=== PATIENT | female | born 1990 | race Hispanic/Latino ===

== ENCOUNTER 2016-10-22 02:44 | Observation (INO) | payer OTHER ==
[2016-10-22 03:00] VITALS: BMI 17.1
[2016-10-22] MEDS ORDERED: Sodium Chloride 0.9% 1,000 ML IV STA (03:19)
[2016-10-22 04:10] LABS: BASO % 0.1 % (0.0-2.0); EOS # 0.1 K/uL (0.0-0.7); EOS % 0.9 % (0.0-4.0); HEMATOCRIT 38.9 % (34.0-47.0); LYMPH # 0.4 K/uL (1.0-4.3); MEAN CELL VOLUME 93.1 fl (81.0-99.0); MEAN CORPUSCULAR HEMOGLOBIN 31.7 pg (27.0-31.0); MEAN PLATELET VOLUME 8.9 fl (7.2-11.7); MONO # 0.5 K/uL (0.0-0.8); MONO % 4.5 % (0.0-10.0); NEUT # 10.1 K/uL (1.8-7.0); NEUT % 90.5 % (50.0-75.0); PLATELET COUNT 231 K/uL (130-400); RED CELL DISTRIBUTION WIDTH 12.8 % (11.5-14.5); WHITE BLOOD COUNT 11.2 K/uL (4.8-10.8)
[2016-10-22 04:23] LABS: ALB/GLOB RATIO 1.3 (1.0-2.1); ALKALINE PHOSPHATASE 41 U/L (38-126); ALT/SGPT 35 U/L (9-52); AST/SGOT 37 U/L (14-36); BILIRUBIN,TOTAL 0.5 mg/dl (0.2-1.3); BLOOD UREA NITROGEN 17 mg/dl (7-17); CALCIUM 9.4 mg/dL (8.4-10.2); CARBON DIOXIDE 25 mmol/L (22-30); CHLORIDE 103 mmol/L (98-107); GFR AFRICAN-AMERICAN > 60; GLUCOSE,RANDOM 103 mg/dL (65-105); LIPASE 366 U/L (23-300); POTASSIUM 4.4 MMOL/L (3.6-5.0); SODIUM 139 mmol/l (132-148); TOTAL PROTEIN 8.1 G/DL (6.3-8.2)
[2016-10-22] MEDS ORDERED: Iohexol 240 (50 ml) PO STA (04:55)
[2016-10-22] MEDS ORDERED: Iohexol 240 (50 ml) ONE (05:00)
--- NOTE | 2016-10-22 05:17 | ED PDOC ---
HPI: Abdomen Time Seen by Provider: 10/22/16 03:03 Chief Complaint (Nursing): Abdominal Pain Chief Complaint (Provider): Abdominal pain, nausea and vomiting History Per: Patient History/Exam Limitations: no limitations Onset/Duration Of Symptoms: Hrs (2.5) Outside of [place] travel?: No Current Symptoms Are (Timing): Still Present Location Of Pain/Discomfort: Diffuse Associated Symptoms: Nausea, Vomiting, Diarrhea (X 2 loose, watery without mucous or blood ). denies: Fever, Chills, Chest Pain Additional Complaint(s): Pt states when she was home she was vomiting back to back, had severe sharp abdominal pain and was sweating. Pt states she felt really bad but is now feeling better. Pt denies similar in the past. Pt states everything she ate her parents ate and she is the only one sick. Denies fever/chills. Past Medical History Reviewed: Historical Data, Nursing Documentation, Vital Signs Vital Signs: Last Vital Signs Temp 98.2 F 10/22/16 03:00 Pulse 95 H 10/22/16 03:00 Resp 16 10/22/16 03:00 BP 145/77 10/22/16 03:00 Pulse Ox 100 10/22/16 05:21 - Medical History PMH: No Chronic Diseases - Surgical History Surgical History: No Surg Hx - Family History Family History: States: No Known Family Hx - Living Arrangements Living Arrangements: With Family - Social History Current smoker - smoking cessation education provided: No Alcohol: Occasional Drugs: Denies - Allergies Allergies/Adverse Reactions: Allergies Allergy/AdvReac Type Severity Reaction Status Date / Time amoxicillin Allergy RASH Verified 10/22/16 03:00 Review of Systems ROS Statement: Except As Marked, All Systems Reviewed And Found Negative Gastrointestinal: Positive for: Nausea, Vomiting, Abdominal Pain, Diarrhea. Negative for: Constipation Physical Exam - Reviewed Nursing Documentation Reviewed: Yes Vital Signs Reviewed: Yes - Physical Exam Appears: Positive for: Well, Non-toxic, No Acute Distress Head Exam: Positive for: ATRAUMATIC, NORMAL INSPECTION, NORMOCEPHALIC Skin: Positive for: Normal Color, Warm, DRY Eye Exam: Positive for: Normal appearance ENT: Positive for: Normal ENT Inspection Neck: Positive for: Normal, Painless ROM Cardiovascular/Chest: Positive for: Regular Rate, Rhythm Respiratory: Positive for: CNT, Normal Breath Sounds Gastrointestinal/Abdominal: Positive for: Bowel Sounds, Soft, Tenderness (RUQ, ( -) Nichole's sign ). Negative for: Normal Exam, Guarding, Rebound Back: Positive for: Normal Inspection Extremity: Positive for: Normal ROM Neurologic/Psych: Positive for: Alert, Oriented - Laboratory Results Result Diagrams: 10/22/16 03:50 10/22/16 03:50 - ECG O2 Sat by Pulse Oximetry: 100 Medical Decision Making Medical Decision Making: On re-evaluation after bentyl and zofran patient reports continued intermittent abdominal pain. Pt tender periumbilical. CT ordered to r/o early appy. ED OBSERVATION Date of observation admission: 10/22/16 Time of observation admission: 05:43 - Observation admission statement Patient is being placed in observation because:: Abdominal pain, pending CT scan - Goals of Observation Goals of observation are:: CT results Disposition - Clinical Impression Clinical Impression: Abdominal pain - Patient ED Disposition Is Patient to be Admitted: Transfer of Care - Disposition Disposition: Transfer of Care Disposition Time: 06:00 Condition: GOOD
[2016-10-22 05:29] LABS: BASOPHIL 1 % (0-2); MYELOCYTE 1 % (0-0); NEUTROPHIL 89 % (42-75); TOTAL CELLS COUNTED 100
--- NOTE | 2016-10-22 06:04 | ED PDOC ---
- Laboratory Results Result Diagrams: 10/22/16 03:50 10/22/16 03:50 - ECG O2 Sat by Pulse Oximetry: 100 Medical Decision Making Medical Decision Making: Patient s/o to provider from JULIETTE Dillon at [address] Patient s/o to Dr. Berg at [address] Scribe Attestation: Documented by Israel Cordova acting as a scribe for Mateo Byers MD. Provider Scribe Attestation: All medical record entries made by the Scribe were at my direction and personally dictated by me. I have reviewed the chart and agree that the record accurately reflects my personal performance of the history, physical exam, medical decision making, and the department course for this patient. I have also personally directed, reviewed, and agree with the discharge instructions and disposition. Disposition - Clinical Impression Clinical Impression: Abdominal pain - POA Present On Arrival: None - Disposition Disposition: Transfer of Care Disposition Time: 07:00 Condition: STABLE Patient Signed Over To: Kaila Berg Handoff Comments: pending CT
[2016-10-22] MEDS ORDERED: Iohexol 300 100 ML IJ ONE (06:23)
[2016-10-22] MEDS ORDERED: Sodium Chloride 0.9% 50 ML IV ONE (06:23)
--- NOTE | 2016-10-22 07:17 | ED PDOC ---
- Laboratory Results Result Diagrams: 10/22/16 03:50 10/22/16 03:50 - ECG O2 Sat by Pulse Oximetry: 100 (RA) Pulse Ox Interpretation: Normal - Physician Consult Information Physician Contacted: Barak Caldwell Outcome Of Conversation: Recommends Lnih Rhoades. Medical Decision Making Medical Decision Makin:00 Patient was signed out to me by Mateo Byers MD pending CT scan, reevaluation and final disposition. Scribe Attestation: Documented by Kaila Vides, acting as a scribe for Kaila Berg MD. Provider Scribe Attestation: All medical record entries made by the Scribe were at my direction and personally dictated by me. I have reviewed the chart and agree that the record accurately reflects my personal performance of the history, physical exam, medical decision making, and the department course for this patient. I have also personally directed, reviewed, and agree with the discharge instructions and disposition. Disposition - Clinical Impression Clinical Impression: Enteritis, Colitis - POA Present On Arrival: None - Disposition Disposition: Hospitalized as Observation Patient Disposition Time: 11:28 Condition: STABLE
--- NOTE | 2016-10-22 09:59 | CT ---
PROCEDURE: CT Abdomen and Pelvis with contrast HISTORY: Periumbilical pain, vomiting COMPARISON: None. TECHNIQUE: Contrast dose: 90 mL Omnipaque 300. Axial and reformatted coronal and sagittal CT images of the abdomen and pelvis were obtained after IV contrast administration. Radiation dose: Total exam DLP = 220.53 mGy-cm. This CT exam was performed using one or more of the following dose reduction techniques: Automated exposure control, adjustment of the mA and/or kV according to patient size, and/or use of iterative reconstruction technique. FINDINGS: LOWER THORAX: Unremarkable. LIVER: Unremarkable. No gross lesion or ductal dilatation. GALLBLADDER AND BILE DUCTS: Unremarkable. PANCREAS: Unremarkable. No gross lesion or ductal dilatation. SPLEEN: Unremarkable. ADRENALS: Unremarkable. No mass. KIDNEYS AND URETERS: Unremarkable. No hydronephrosis. No solid mass. VASCULATURE: Unremarkable. No aortic aneurysm. BOWEL: Dbanym-kn-bmigdsedoc distended stomach demonstrate tbul-ml-phescugb diffuse wall thickening. The duodenum is also mildly to moderately distended demonstrate diffuse wall thickening. There are small bowel loops seen at the left upper abdomen demonstrate moderate wall thickening. No evidence of high-grade small bowel obstruction. There is suspicious for cecal and proximal ascending colon wall thickening. Descending colon wall thickening versus incomplete distention is also noted. The rest of the small bowel loops at the mid and lower abdomen demonstrate mild diffuse wall thickening. APPENDIX: There is no evidence of appendicitis. PERITONEUM: Unremarkable. No free fluid. No free air. LYMPH NODES: Unremarkable. No enlarged lymph nodes. BLADDER: Unremarkable. REPRODUCTIVE: Unremarkable. BONES: No acute fracture. OTHER FINDINGS: None. IMPRESSION: Distended stomach and duodenum demonstrate jhyv-dj-swusgtvi diffuse wall thickening. Moderate wall thickening seen in the proximal small bowel loops at the left upper abdomen. Diffuse mild small bowel wall thickening at the abdomen and pelvis. Suspicious for segmental wall thickening of the large bowel at the cecum and proximal ascending colon as well as in the descending colon. The possibility of colitis/enteritis should be considered. The differential diagnosis includes infection or inflammatory bowel disease. No CT evidence of cholecystitis pancreatitis or appendicitis.
[2016-10-22] MEDS ORDERED: Ciprofloxacin 400mg/200ml D5W 400 MG/200 ML BAG IV STA (11:19)
[2016-10-22] MEDS ORDERED: metroNIDAZOLE 500mg/100ml NS 100 ML IV STA (11:19)
[2016-10-22] MEDS ORDERED: Ciprofloxacin 400mg/200ml D5W 400 MG/200 ML BAG IVPB ONE (11:32)
[2016-10-22] MEDS ORDERED: metroNIDAZOLE 500mg/100ml NS 100 ML IVPB ONE (11:32)
--- NOTE | 2016-10-22 12:54 | CP.PCM.CON ---
<Concepcion Landa - Last Filed: 10/22/16 13:23> History of Present Illness - History of Present Illness History of Present Illness: Gastroenterology Fellow/PGY4 Consult Note 26 year old female with no prior medical history presenting with abdominal pain. Patient describes sudden onset of nonradiating bilateral lower quadrant pain, scale 11/10. She notes over five episodes of food vomitus after pain onset. She notes subjective fever for two days prior to admission. Denies chills , sweats, diarrhea, constipation, indigestion, bloating, heartburn, hematochezia , hematemesis, tenesmus, joint pain, skin rashes, eye redness, or unintentional weight loss. Only medication of control pills. Family had a cookout yesterday with last meal intake of steak at 6pm consumed by parents as well who are in good health and no similar symptoms to patient. No prior issues with diarrhea or vague GI symptoms that were concerning to patient or family. No prior EGD or colonoscopy. Family- maternal uncle -colon cancer with brain metastases, BRAF mutation at 57 years of age; denies family with IBD, stomach cancer Social- denies tobacco, alcohol, illicit drug use Surgery- none Review of Systems - Review of Systems Review of Systems: A 12-point review of systems negative except for as above Past Patient History - Past Social History Alcohol: Occasional Drugs: Denies - PSYCHIATRIC Hx Substance Use: No Meds Allergies/Adverse Reactions: Allergies Allergy/AdvReac Type Severity Reaction Status Date / Time amoxicillin Allergy RASH Verified 10/22/16 03:00 Physical Exam - Constitutional Appears: Non-toxic, No Acute Distress - Head Exam Head Exam: ATRAUMATIC, NORMOCEPHALIC - Eye Exam Eye Exam: EOMI, PERRL Pupil Exam: PERRL. absent: Miosis, Mydriatic - ENT Exam ENT Exam: Mucous Membranes Moist, Normal Oropharynx - Neck Exam Neck exam: Positive for: Full Rom, Normal Inspection - Respiratory Exam Respiratory Exam: Clear to Auscultation Bilateral. absent: Rales, Rhonchi, Wheezes - Cardiovascular Exam Cardiovascular Exam: RRR, +S1, +S2. absent: Gallop, Rubs - GI/Abdominal Exam GI & Abdominal Exam: Normal Bowel Sounds, Soft, Tenderness. absent: Distended, Firm, Guarding, Rebound, Rigid Additional comments: B/L LQ tenderness to palpation - Extremities Exam Extremities exam: Positive for: full ROM. Negative for: pedal edema - Neurological Exam Neurological exam: Alert, Oriented x3 - Psychiatric Exam Psychiatric exam: Normal Affect, Normal Mood - Skin Skin Exam: Dry, Intact, Normal Color, Warm Results - Vital Signs Recent Vital Signs: Last Vital Signs Temp 99.6 F 10/22/16 11:44 Pulse 86 10/22/16 11:44 Resp 18 10/22/16 11:44 BP 112/66 10/22/16 11:44 Pulse Ox 100 10/22/16 11:28 - Labs Result Diagrams: 10/22/16 03:50 10/22/16 03:50 Assessment & Plan - Assessment and Plan (Free Text) Assessment: 26 year old female with no prior medical history presenting with abdominal pain. CT A/P PO/IV contrast showing diffuse mild to moderate thickening of stomach, duodenum to small bowel in left upper quadrant, cecum, proximal ascending colon, and possibly descending colon versus underdistension. Active treatment of enterocolitis. No prior EGD or colonoscopy. Plan: >DDx: viral gastroenteritis - low suspicion IBD >supportive care: pain control, antiemetic, PPI, IVFs >clear liquid diet, advance as tolerated >received Cipro and Flagyl in ED >hold additional antibiotics >ordered Cdiff, fecal leukocytes, stool culture, O&P >ordered fecal calprotectin >follow up blood and urine cultures >will follow clinical course <[facility] - Last Filed: 10/22/16 14:13> Meds - Medications Medications: Current Medications Sodium Chloride (Sodium Chloride 0.9%) 1,000 mls @ 100 mls/hr IV .Q10H JOSE Stop: 10/23/16 13:25 Pantoprazole Sodium (Protonix Ec Tab) 40 mg PO DAILY JOSE Results - Vital Signs Recent Vital Signs: Last Vital Signs Temp 99.6 F 10/22/16 11:44 Pulse 86 10/22/16 11:44 Resp 18 10/22/16 11:44 BP 112/66 10/22/16 11:44 Pulse Ox 100 10/22/16 11:28 - Labs Result Diagrams: 10/22/16 03:50 10/22/16 03:50 Attending/Attestation - Attestation I have personally seen and examined this patient.: Yes I have fully participated in the care of the patient.: Yes I have reviewed all pertinent clinical information: Yes Notes (Text): 10/22/16 14:09 patient seen and examined with GI fellow on rounds this am. I agree with assessment and plan with following additions. This is a 26 year old female with no prior medical history presenting with abdominal pain followed by nausea and vomiting. CT A/P PO/IV contrast showing diffuse mild to moderate thickening of stomach, duodenum to small bowel in left upper quadrant, cecum, proximal ascending colon, and possibly descending colon versus underdistension. Her symptoms started 6 hours after having bar[place] [facility] No prior episodes. No travel history or sick contacts. She denies diarrhea and upper GI symptoms today. Likely viral gastroenteritis and low suspicion IBD. Will continue liquid diet and discontinue antibiotics. Continue PPI in am and supportive care. If able to tolerate advanced diet will discharge to home.
[2016-10-22] MEDS: Pantoprazole 40 mg EC Tab PO SCH (15:06)
[2016-10-22] MEDS: Sodium Chloride 0.9% 1,000 ML IV SCH ×2 (15:07→22:40)
[2016-10-23] MEDS: Pantoprazole 40 mg EC Tab PO SCH (08:54)
--- NOTE | 2016-10-23 12:51 | CP.PCM.PN ---
Subjective - Date & Time of Evaluation Date of Evaluation: 10/23/16 Time of Evaluation: 11:00 - Subjective Subjective: Seen at bedside. Denies fever, diarrhea, nausea, vomiting. Tolerating clear liquid diet Objective - Vital Signs/Intake and Output Vital Signs (last 24 hours): Temp Pulse Resp BP Pulse Ox 98.4 F 64 20 97/60 L 99 10/23/16 08:19 10/23/16 08:19 10/23/16 08:19 10/23/16 08:19 10/23/16 08:19 - Medications Medications: Current Medications Acetaminophen (Tylenol 325mg Tab) 650 mg PO Q6 PRN PRN Reason: Fever >100.4 F Sodium Chloride (Sodium Chloride 0.9%) 1,000 mls @ 100 mls/hr IV .Q10H JOSE Stop: 10/23/16 13:25 Last Admin: 10/22/16 22:40 Dose: 100 mls/hr Pantoprazole Sodium (Protonix Ec Tab) 40 mg PO DAILY JOSE Last Admin: 10/23/16 08:54 Dose: 40 mg - Constitutional Appears: Well - Head Exam Head Exam: ATRAUMATIC, NORMAL INSPECTION, NORMOCEPHALIC - Eye Exam Eye Exam: Conjunctival injection - ENT Exam ENT Exam: Mucous Membranes Moist, Normal Exam - Neck Exam Neck Exam: Full ROM, Normal Inspection. absent: Lymphadenopathy - Respiratory Exam Respiratory Exam: Clear to Ausculation Bilateral, NORMAL BREATHING PATTERN - Cardiovascular Exam Cardiovascular Exam: REGULAR RHYTHM, +S1, +S2. absent: Murmur - GI/Abdominal Exam GI & Abdominal Exam: Soft, Normal Bowel Sounds. absent: Tenderness - Extremities Exam Extremities Exam: Full ROM, Normal Capillary Refill, Normal Inspection. absent : Joint Swelling, Pedal Edema - Neurological Exam Neurological Exam: Alert, Awake, CN II-XII Intact, Normal Gait, Oriented x3 - Psychiatric Exam Psychiatric exam: Normal Affect, Normal Mood - Skin Skin Exam: Dry, Intact, Normal Color, Warm Assessment and Plan - Assessment and Plan (Free Text) Assessment: 26 year old female with no prior medical history presenting with abdominal pain. CT A/P PO/IV contrast showing diffuse mild to moderate thickening of stomach, duodenum to small bowel in left upper quadrant, cecum, proximal ascending colon, and possibly descending colon versus underdistension. Likely cause viral gastroenteritis with symptoms abating within 24 hours of presentation P Plan: - Advance diet as tolerated - No diarrhea- short snot require stool studies - Discontinue IVF - Probiotics and FODMAP explained to the family - GI prophylaxis - May be discharged from GI perspective - Thank you for letting us participate in the care of your patient
[2016-10-23] MEDS: Sodium Chloride 0.9% 1,000 ML IV SCH (15:17)
[2016-10-23 16:26] VITALS: BP 99/64; PULSE 75; RESP 18; TEMP 99.1; O2SAT 100
--- NOTE | 2016-10-23 23:59 | HP ---
HISTORY OF PRESENT ILLNESS: This is a 26-year-old female with no significant past medical history, who presented to Emergency Room with symptoms of abdominal pain associated with vomiting bonnie t has progressed over 2 days' duration. The patient was evaluated in the Emergency Room and she had a CAT scan done that showed diffuse colitis. The patient was initially started on IV Cipro and Flagy l, which was stopped by the bed manager later on. The patient denied to have any similar symp toms before, and did not have any diarrhea, no fever, and she admits that she had shiver, also. REVIEW OF SYSTEMS: Other review of systems negative. ALLERGIES: No known allergy. PAST MEDICAL HISTORY: None. SOCIAL HISTORY: No smoking, ETOH, or substance abuse. FAMILY HISTORY: Not contributory. PHYSICAL EXAMINATION: GENERAL: The patient is in bed, comfortable, not in any cardiopulmonary distress at the time of this examination. VITAL SIGNS: Blood pressure 110/70, temperature 99.1, respiratory rate 18, and pulse 80. HEENT: Pupils equal, reactive to light. Normal-appearing mucosa of the conjunctivae, oropharyngeal, and nasal membrane mucosa. NECK: Supple, no JVD, no carotid bruit, no lymph node, no thyromegaly. CHEST AND LUNGS: Bilateral symmetrical expansion, good air exchange. No rales, no rhonchi. CARDIOVASCULAR: PMI not localized. S1, S2. No additional sounds. ABDOMEN: Normoactive bowel sounds, no tenderness, no organomegaly, no masses. EXTREMITIES: No cyanosis, no clubbing, no edema. CENTRAL NERVOUS SYSTEM: Alert, awake, oriented x 3. No neurological deficits could be appreciated. DIAGNOSTIC DATA: CAT scan showed distended stomach and the D-dimer demonstrates mild to moderate dif fuse wall thickening. Mild wall thickening seen in the proximal small bowel loop at the left upper a bdomen. Diffuse mild small bowel wall thickening of the abdomen and pelvis. Suspicious for segmenta l wall thickening of the large bowel at the cecum and proximal ascending colon, as well as in the paola cending colon. The possibility of colitis/enteritis should be considered. The differential diagnosi s includes infectious or inflammatory bowel disease. ASSESSMENT: Gastroenteritis/colitis. PLAN: Continue IV fluids and advance diet as tolerated and follow GI recommendations. Arabella Arcos MD cc: [id number] TT: 10/23/2016 23:58:25 dn
--- NOTE | 2016-10-24 01:47 | DS ---
REASON FOR ADMISSION: This is a 26-year-old female with no significant past medical histor y, was admitted for gastroenteritis and colitis. COURSE OF HOSPITALIZATION: The patient was started on IV fluids and admitted to medical floor. The patient was given antiemetics and started on IV antibiotics that was stopped by crop farmers. The patient continued to improve and diet was advanced that patient tolerated well. The patient was discharged in stable condition with her parents to follow up with Dr. Arcos in a week and continue ad vancing diet gradually. FINAL DIAGNOSES: 1. Gastroenteritis 2. Colitis. Both are most probably viral in etiology which is self-limited. [facility] MD cc: [id number] TT: 10/24/2016 01:46:10 an
== END 2016-10-23 17:30 | disposition home or self-care (01) ==
LOC: H.ER 02:44 → H.EROBSV 05:40 → H.ERHOLD 11:27 → H.MEDSURG1 12:18
PROVIDERS: ADMIT Internal Medicine; ATTEND Internal Medicine
DX: K52.9 Noninfective gastroenteritis and colitis, unspecified (principal); Z88.0 Allergy status to penicillin